=== PATIENT | female | born 1975 | race Caucasian/White ===

== ENCOUNTER 2023-03-07 10:13 | Emergency (ER) | payer MEDICAID ==
[~2023-03-07] VITALS: Ht 154.9 cm; Wt 87.6 kg
[2023-03-07 10:23] VITALS: TEMP 98.4; O2SAT 98
[2023-03-07 11:45] VITALS: BP 150/98; PULSE 112; RESP 18
[2023-03-07] MEDS ORDERED: KETOROLAC 60MG/2ML VIAL IM ONE (11:45)
[2023-03-07] MEDS ORDERED: LIDOCAINE 5% PATCH TOP SCH (11:45)
[2023-03-07] MEDS ORDERED: NAPR-1129 MT (12:24)
== END 2023-03-07 13:42 | disposition home or self-care (01) ==
LOC: ER 10:13
DX: M25.511 Pain in right shoulder (principal); G89.11 Acute pain due to trauma
CPT/HCPCS: 71045; 96372; 99283; J1885; Z7610